=== PATIENT | male | born 1965 | race Caucasian/White ===

== ENCOUNTER 2018-09-24 17:49 | Inpatient (IN) ==
[2018-09-24 19:31] LABS: BASO# 0.02 X1000 (0.0-0.2); BASO% 0.1 % (0.0-0.8); EOS# 0.09 X1000 (0.0-0.7); EOS% 0.5 % (0.0-10.0); HEMATOCRIT 38.3 % (42.0-52.0); HEMOGLOBIN 12.8 g/dL (14.0-18.0); IMM GRAN# 0.04 X1000 (0.0-0.04); IMM GRAN% 0.2 % (0.0-0.5); LYMPH# 0.96 X1000 (1.2-3.4); LYMPH% 5.4 % (20.5-51.1); MCHC 33.4 g/dL (33-37); MCV 86.7 FL (81-99); MONO# 0.94 X1000 (0.11-0.59); MONO% 5.3 % (1.7-9.3); MPV 8.7 FL (7.4-10.4); NEUT# 15.63 X1000 (1.4-6.5); NEUT% 88.5 % (42.2-75.2); PLT 292 X1000 (130-400); RBC 4.42 XMIL (4.7-6.1); RDW 13.7 % (11.5-14.5); WBC 17.68 X1000 (4.8-10.8)
[2018-09-24 19:43] LABS: ALB/GLOB RATIO 1.1; ALBUMIN 3.9 g/dL (3.5-5.0); CALCIUM 9.8 mg/dL (8.8-10.2); POTASSIUM 3.7 mmol/L (3.5-5.1); TOTAL BILIRUBIN 0.35 mg/dL (0.20-1.00); TOTAL PROTEIN 7.3 g/dL (6.3-8.3)
[2018-09-24] MEDS ORDERED: NS 1,000 ML IV ONE (21:41)
[2018-09-24] MEDS ORDERED: ZOFRAN IV ONE (21:42)
[2018-09-24] MEDS ORDERED: MORPHINE IV ONE ×2 (21:42→23:40)
--- NOTE | 2018-09-24 23:22 | Diag Imaging Result Doc PS360 ---
EXAM: LUMBAR SPINE 2-VIEWS HISTORY: fall TECHNIQUE: AP and lateral, two views COMPARISON: None. FINDINGS: There is good alignment of the lumbar spine. No fracture. No subluxation. Prominent atherosclerosis. IMPRESSION: No acute bony injury. Electronically signed by Eh Motley 09/24/2018 11:20 PM
--- NOTE | 2018-09-24 23:25 | Diag Imaging Result Doc PS360 ---
EXAM: CERVICAL SPINE 2-VIEWS HISTORY: fall TECHNIQUE: AP and lateral, two views COMPARISON: None. FINDINGS: There is mild scoliosis and there are small degenerative bone spurs throughout the cervical spine. No subluxation. No precervical soft tissue swelling. IMPRESSION: Scoliosis with degenerative changes. Electronically signed by Eh Motley 09/24/2018 11:23 PM
[2018-09-24] MEDS ORDERED: NORVASC PO ONE (23:41)
[2018-09-25] MEDS ORDERED: G.I. COCKTAIL PO ONE (00:13)
[2018-09-25] MEDS ORDERED: STERILE WATER INJ. ONE (00:43)
[2018-09-25 01:23] LABS: URINE SOURCE CATH
[2018-09-25 01:54] LABS: BILIRUBIN URINE NEGATIVE (NEGATIVE); BLOOD URINE NEGATIVE (NEGATIVE); COLOR YELLOW; GLUCOSE URINE NEGATIVE (NEGATIVE); KETONE URINE NEGATIVE (NEGATIVE); LEUKOCYTES URINE NEGATIVE (NEGATIVE); NITRITE URINE NEGATIVE (NEGATIVE); PROTEIN URINE 30 mg/dL (NEGATIVE); SP GRAVITY URINE 1.007; TURBIDITY URINE CLEAR (CLEAR); UR EPITHELIAL CELLS <10 /HPF (<10); URINE BACTERIA NEGATIVE /HPF; URINE RBC <10 /HPF (<10); URINE WBC <10 /HPF (<10); UROBILINOGEN URINE NORMAL (NORMAL)
[2018-09-25] MEDS ORDERED: DILAUDID IV PRN (03:33)
--- NOTE | 2018-09-25 03:33 | PROVIDER DOCUMENTATION ---
This chart was entered by Cheyenne Booker Scribe, acting as scribe for Jesus Wild MD. HPI-General Adult - General Chief Complaint: Fall Stated Complaint: BACK PAIN/FALL Time Seen by Provider: 09/24/18 20:54 Source: patient Allergies/Adverse Reactions: Patient Allergies Allergy/AdvReac Type Severity Reaction Status Date / Time tizanidine HCl * Allergy Severe SYNCOPE Verified 09/24/18 21:28 [[facility] Home Medications: Home Medication List Medication Instructions Recorded Confirmed Last Taken Type Albuterol Sulfate [Proair Hfa] 2 puff INH PRN PRN 01/14/16 07/02/18 07/02/18 04: 00 History Promethazine [Phenergan] 25 mg PO Q6H PRN PRN 12/13/16 07/02/18 07/02/18 04:00 History Atorvastatin Calcium [Lipitor] 10 mg PO QHS 05/22/18 07/02/18 06/30/18 History Iron,Carbonyl/Ascorbic Acid [Iron 1 tab PO QAM 05/22/18 07/02/18 07/01/18 06:00 History 100-Vitamin C Tablet] Oxycodone/APAP 10 mg/325 mg 1 tab PO TID 05/22/18 07/02/18 07/01/18 12:30 History [Percocet-10] Sodium Bicarbonate 1 dose PO BID 05/22/18 07/02/18 07/01/18 16:00 History Trazodone [Desyrel] 100 mg PO PRN PRN 05/22/18 07/02/18 06/30/18 History Hydrocodone/Acetaminophen [[place] 1 each PO Q4H PRN PRN #30 tablet 07/02/18 Unknown Rx 10-325 Tablet] - History of Present Illness -Gen Adult Nature of Presenting Problems: pt is a 53 yr old male presenting with 2 day complaint of LLQ pain , hx of pancreatitis. pt reports pain as 9/10 "almost incapacitating" pt also reports nausea and vomiting. pt also reports low back and neck pain post fall 1 day ago. pt uses cane for ambulation Location of Pain/Injury: reports: neck, abdomen (LLQ), back Pain Radiation: reports: no radiation Quality of Pain: reports: aching (neck/back), sharp (LLQ) Timing: reports: constant Context/Activities at Onset: reports: recent trauma history (fall 1 day ago) Modifying Factors: improves with: nothing Associated Symptoms: reports: back/neck pain, nausea, vomiting, trouble walking . denies: fever/chills, genitourinary problems, shortness of breath, sensory/ motor loss Similar Symptoms Previously?: Yes (hx of pancreatitis) Recently seen or treated by another doctor?: No Review of Systems - Adult - REVIEW OF SYSTEMS - ADULT Constitutional: reports: fatique. denies: chills, fever Eyes: reports: no symptoms reported Ears, Nose, Mouth & Throat: reports: no symptoms reported Cardiovascular: denies: chest pain, palpitations, syncope Respiratory: denies: cough, shortness of breath Gastrointestinal: reports: abdominal pain, nausea, vomiting. denies: constipation, diarrhea Genitourinary: denies: dysuria, frequency, flank pain Musculoskeletal: reports: back pain, neck pain Integumentary: reports: no symptoms reported Neurological: denies: dizziness/vertigo, headache/migraines Psychiatric: reports: no symptoms reported Endocrine: reports: no symptoms reported Hematologic/Lymphatic: reports: no symptoms reported Allergic/Immunologic: reports: no symptoms reported All Other Systems: Reviewed and Negative Past History - Adult - PAST MEDICAL HISTORY-ADULT Review of Records: reports: Old Records Reviewed, Nursing Assessment Review, Medications Reviewed, Social history reviewed & non-contributory. Major Childhood Illnesses: reports: denies history Cardiovascular: reports: HTN Respiratory: reports: denies history Gastrointestinal: reports: GERD, pancreatitis Obstetrical/Gynecological: reports: denies history Genitourinary: reports: denies history Musculoskeletal: reports: chronic pain ( back ) Neurological: reports: denies history Psychiatric: reports: bipolar Endocrine/Immune: reports: other (pancreatitis) Other Conditions: reports: denies history - PRIOR SURGERIES/PROCEDURES Surgical/Procedure History: reports: appendectomy, other (partial right foot amputation) - IMMUNIZATION STATUS Childhood Immunizations: See Nurse Assessment Flu Vaccine: See Nurse Assessment - FAMILY HISTORY Family History: reviewed, not pertinent - SOCIAL HISTORY Smoking: denies Substance Use: none presently/history of abuse, alcohol Living Situation: family Physical Exam-General - PHYSICAL EXAM-ADULT Initial Vital Signs Reviewed: Yes - CONSTITUTIONAL General Appearance: appears well, alert, no apparent distress - EYES Eyes: PERRL/EOMI - HEAD, EARS, NOSE, MOUTH & THROAT HENMT: normocephalic/atraumatic, moist mucous membranes, normal ENT inspection Progress - PLAN OF CARE/RESULTS Progress/Plan/Lab Results: Vital Signs - 8 hr 09/24/18 18:13 Temperature 97.9 F Pulse Rate 100 H Respiratory Rate 18 Blood Pressure 150/94 O2 Sat by Pulse Oximetry 100 Laboratory Results - last 24 hr 09/24/18 09/24/18 19:00 19:00 WBC 17.68 H RBC 4.42 L Hgb 12.8 L Hct 38.3 L MCV 86.7 MCH 29.0 MCHC 33.4 RDW Std Deviation 13.7 Plt Count 292 MPV 8.7 Immature Gran % (Auto) 0.2 Neut % (Auto) 88.5 H Lymph % (Auto) 5.4 L [place] % (Auto) 5.3 Eos % (Auto) 0.5 Baso % (Auto) 0.1 Immature Gran # (Auto) 0.04 Neut # (Auto) 15.63 H Lymph # (Auto) 0.96 L [place] # (Auto) 0.94 H Eos # (Auto) 0.09 Baso # (Auto) 0.02 Sodium 140 Potassium 3.7 Chloride 101 Carbon Dioxide 24 L Anion Gap 15 BUN 17 Creatinine 2.0 H Estimated GFR/1.73 m2 35 BUN/Creatinine Ratio 9 Glucose 169 H Calculated Osmolality 285 Calcium 9.8 Total Bilirubin 0.35 AST 10 ALT 7 L Alkaline Phosphatase 160 H Total Protein 7.3 Albumin 3.9 Globulin 3.4 Albumin/Globulin Ratio 1.1 Amylase 89 Lipase 231 H Orders Category Date Time Status Saline Loc DIRECTED Care 09/24/18 19:06 Active NPO Diet 09/24/18 19:06 Active CERVICAL SPINE 2-VIEWS [RAD] Stat Exams 09/24/18 22:01 Taken LUMBAR SPINE 2-VIEWS [RAD] Stat Exams 09/24/18 22:01 Taken AMYLASE [CHEM] Stat Lab 09/24/18 19:00 Completed CBC WITH ELECTRONIC DIFF [HEME] Stat Lab 09/24/18 19:00 Completed COMPREHENSIVE METABOLIC PANEL [CHEM] Stat Lab 09/24/18 19:00 Completed LIPASE [CHEM] Stat Lab 09/24/18 19:00 Completed URINALYSIS W/POSS RFLX CULT [URINALYSIS] Stat Lab 09/24/18 19:06 Uncollected 0.9% Sodium Chloride Inj [Ns] 1,000 ml Med 09/24/18 21:41 Active IV 999 mls/hr Morphine Med 09/24/18 21:42 Discontinued 4 mg IV NOW ONE Ondansetron [Zofran] Med 09/24/18 21:42 Discontinued 4 mg IV NOW ONE Result Diagrams: 09/24/18 19:00 09/24/18 19:00 - CONSULTS/PCP/HOSPITALIST Notification #1 *Consult/PCP/Hospitalist*: akinsoto Time Discussed: 23:13 (acute pancreatitis) Consult Disposition: Admit Departure - Departure Date of Disposition Decision: 09/24/18 Time of Disposition Decision: 23:13 DIAGNOSIS: Acute pancreatitis Disposition: ADMITTED INPATIENT 09 Certified Medical Emergency: Emergent Condition: Fair - Critical Care Note This patient required my direct & personal management of CC.: No Attestation - Physician/ DESTINY Attestation Patient care was provided by Advanced Practice Provider:: No The physician spent face to face time with patient:: Yes Advanced Practice Provider documentation review:: Supervising physician onsite and consulted in the evaluation and care of this patient. The physician did have a face to face encounter with the patient. This chart was documented by the indicated scribe, (Cheyenne Booker, [place]) and accurately reflects the services I performed and decisions made by me, Jesus Wild MD, as attested by the provider's signature.
[2018-09-25] MEDS ORDERED: DILAUDID ONE ×2 (03:55→09:59)
[2018-09-25] MEDS: HEPARIN SUBQ SCH ×2 (04:03→14:39)
[2018-09-25] MEDS: NS 1,000 ML IV SCH ×2 (04:16→13:33)
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
[2018-09-25 07:02] LABS: BASO# 0.01 X1000 (0.0-0.2); BASO% 0.1 % (0.0-0.8); EOS# 0.16 X1000 (0.0-0.7); EOS% 1.8 % (0.0-10.0); HEMATOCRIT 34.6 % (42.0-52.0); HEMOGLOBIN 11.4 g/dL (14.0-18.0); IMM GRAN# 0.02 X1000 (0.0-0.04); IMM GRAN% 0.2 % (0.0-0.5); LYMPH# 1.06 X1000 (1.2-3.4); LYMPH% 11.9 % (20.5-51.1); MCH 28.8 PG (27-31); MCHC 32.9 g/dL (33-37); MCV 87.4 FL (81-99); MONO# 0.67 X1000 (0.11-0.59); MONO% 7.5 % (1.7-9.3); MPV 8.8 FL (7.4-10.4); NEUT% 78.5 % (42.2-75.2); PLT 216 X1000 (130-400); RBC 3.96 XMIL (4.7-6.1); RDW 13.6 % (11.5-14.5); WBC 8.92 X1000 (4.8-10.8)
[2018-09-25 07:08] LABS: INR 0.91
[2018-09-25 07:13] LABS: CHOLESTEROL 131 mg/dL (0-200); HDL 43 mg/dL (35-55); LDL 70 mg/dL; TRIGLYCERIDES 90 mg/dL (39-160); VLDL 18 mg/dL
[2018-09-25 07:24] LABS: CALCIUM 9.4 mg/dL (8.8-10.2); CREATININE 1.9 mg/dL (0.7-1.2); MAGNESIUM 1.9 mg/dL (1.5-2.7); POTASSIUM 3.2 mmol/L (3.5-5.1)
[2018-09-25] MEDS: DILAUDID IV PRN ×4 (10:42→22:49)
[2018-09-25] MEDS: NORVASC PO SCH ×2 (10:42→22:50)
[2018-09-25] MEDS: ZOFRAN IV PRN ×3 (10:44→18:21)
--- NOTE | 2018-09-25 11:09 | PROGRESS NOTE ---
DATE: 09/25/2018 SUBJECTIVE: This morning, Mr. Murphy refers to be doing a little better. Still has some abdominal discomfort and generalized pains from his fall. Mr. Murphy got admitted yesterday. He said he fell from a truck and sustained some injury to his neck and back. Upon presentation, imaging studies, including x-rays were unremarkable. He said subsequently after the fall, he took Percocet and morphine and then by the following day he started having abdominal pain, came to the emergency department where he was evaluated and was found to have lipase level high. He was subsequently admitted for acute pancreatitis. This morning, he said he is feeling a whole lot better. OBJECTIVE: Vital signs: Blood pressure is 171/84, pulse is 68, respiration is 15, temperature is 97.6 degrees. General: Mr. Murphy is a 53-year-old gentleman. He is in bed. No distress. Mucosa is pink and moist. Anicteric and acyanotic. Neck: Supple. Chest: Good air entry bilaterally. There were no crepitations. No rhonchi. No accessory muscle use. Cardiovascular: Regular rate and rhythm. No murmurs, no rubs, no gallops. GI: Abdomen is soft, minimally tender in the periumbilical region. There is a scar on the left upper quadrant. Bowel sounds present. Extremities: No pedal edema. Patient has a right transmetatarsal amputation with a clean stump. Distal pulses are present. COTTON FARMER: Patient is awake, alert, and oriented. No focal neurological deficit. Musculoskeletal: Minimal tenderness over the paracervical spine. Neurological: No neurological deficits. LABORATORY DATA: Has been reviewed. WBC is 8.92, hemoglobin is 11.4, platelet count 216,000. Chemistry is also reviewed. Chemistry is down to 1.9, creatinine is 2.3. The lipase was 231 on admission. IMAGING STUDIES: Cervical x-ray did show scoliosis with degenerative changes. Lumbar spine showed no acute bony abnormalities. ASSESSMENT: 1. Acute on chronic pancreatitis. The patient is currently minimally symptomatic in terms of the abdominal pain. We are going to start him on meals and see if he is able to tolerate. 2. Status post mechanical fall. 3. Noted, patient has generalized pains. X-rays have been unremarkable. We will continue with physical therapy and pain management. 4. Hypertension, controlled. The patient is currently on Norvasc. 5. Dyslipidemia. We will continue with the atorvastatin. 6. Acute on chronic kidney failure. Creatinine is on downward trend. Patient did have a renal biopsy done in 2016, which revealed acute interstitial nephritis and does have also arteriosclerosis moderate with moderate tubular atrophy and interstitial fibrosis. As I said, this was in 2016. This time around, the patient got admitted with creatinine level of 2, and is down to 1.9. We will continue with the gentle hydration and go from there. 7. Ongoing tobacco use. According to him, he is only using vape. cc: Ritesh Motley MD
[2018-09-25] MEDS ORDERED: ATIVAN IV ONE (20:35)
[2018-09-25] MEDS ORDERED: DILAUDID IV ONE (20:35)
[2018-09-25] MEDS: LIPITOR PO SCH (22:50)
[2018-09-26] MEDS: NS 1,000 ML IV SCH (03:29)
[2018-09-26] MEDS: DILAUDID IV PRN ×8 (04:24→23:53)
[2018-09-26] MEDS: ZOFRAN IV PRN (06:11)
[2018-09-26 08:04] LABS: BASO# 0.01 X1000 (0.0-0.2); BASO% 0.1 % (0.0-0.8); EOS# 0.08 X1000 (0.0-0.7); EOS% 1.1 % (0.0-10.0); HEMATOCRIT 33.7 % (42.0-52.0); HEMOGLOBIN 11.2 g/dL (14.0-18.0); IMM GRAN# 0.02 X1000 (0.0-0.04); IMM GRAN% 0.3 % (0.0-0.5); LYMPH# 0.44 X1000 (1.2-3.4); MCHC 33.2 g/dL (33-37); MCV 90.3 FL (81-99); MONO# 0.43 X1000 (0.11-0.59); MONO% 5.8 % (1.7-9.3); NEUT# 6.38 X1000 (1.4-6.5); NEUT% 86.7 % (42.2-75.2); PLT 160 X1000 (130-400); RBC 3.73 XMIL (4.7-6.1); RDW 13.9 % (11.5-14.5); WBC 7.36 X1000 (4.8-10.8)
[2018-09-26 08:17] LABS: LYMPHS 10 % (21-51); MONO 4 % (1-9); SEGS 86 % (42-75)
[2018-09-26 08:42] LABS: ALB/GLOB RATIO 1.5; ALBUMIN 3.8 g/dL (3.5-5.0); C REACTIVE PROT QUANT 44.77 mg/L (0.00-5.00); CALCIUM 9.2 mg/dL (8.8-10.2); CREATININE 1.7 mg/dL (0.7-1.2); POTASSIUM 3.6 mmol/L (3.5-5.1); TOTAL BILIRUBIN 0.38 mg/dL (0.20-1.00); TOTAL PROTEIN 6.4 g/dL (6.3-8.3)
[2018-09-26] MEDS: NORVASC PO SCH ×2 (09:13→20:06)
[2018-09-26] MEDS: HEPARIN SUBQ SCH ×2 (09:16→20:03)
[2018-09-26] MEDS: LR 1,000 ML IV SCH ×3 (09:16→19:21)
[2018-09-26] MEDS ORDERED: DESYREL PO PRN (17:33)
[2018-09-26] MEDS: PERCOCET-10 PO SCH (18:03)
--- NOTE | 2018-09-26 18:14 | PROGRESS NOTE ---
DATE: 09/26/2018 SUBJECTIVE: This morning, Mr. Murphy refers to be doing fairly okay. Still has some residual abdominal discomfort, but he has been tolerating his clear liquid diet. OBJECTIVE: Vital signs: Blood pressure is 183/86, pulse is 79, respirations 20, temperature 97.7 degrees. General: Mr. Murphy is a 53-year-old gentleman. He was in bed in no distress. HEENT: Mucosa is pink and moist. Anicteric. Acyanotic. Neck: Supple. Chest: Good air entry bilateral. There were no crepitations. No rhonchi. Cardiovascular: Regular rate and rhythm. No murmurs, no rubs, no gallops. Gastrointestinal: Abdomen is soft, minimally tender in the periumbilical area. There is a scar on the left upper quadrant. Extremities: No pedal edema. Distal pulses are present. There is a right transmetatarsal amputation with clean stump. TOBY MAKER: Patient is awake, alert, and oriented. LABORATORY DATA: WBC is 7.36, hemoglobin 11.2, platelet count 160,000. Chemistry is also reviewed. Bicarb is 15. Creatinine is down to 1.7. C-reactive protein is elevated at 44.7. Patient's lipase is down to 75. ASSESSMENT AND PLAN: 1. Qvbov-ys-lyumbyz pancreatitis. Lipase is on downward trend. Patient's C-reactive protein is still elevated. He is currently on clear liquids. We will continue with IV hydration, pain management, and see if he be able to tolerate a clear full liquid diet. 2. Status post status post mechanical fall at home. 3. [id number] kidney failure. Creatinine continues to be on downward trend. 4. Ongoing tobacco abuse. Patient has been counseled. 5. Dyslipidemia/hypertension. We will continue to manage these comorbidities. In general, Mr. Murphy seems to be getting a little better. C-reactive protein is still elevated. However, lipase is almost normalized. Patient's creatinine is also on downward trend. We will continue with the IV fluids. I have changed the fluid to lactate because of hyperchloremic acidemia. We will recheck on his labs in the morning. Please refer to the other details of the progress note in the medical student's notes. cc: Ritesh Motley MD
[2018-09-26] MEDS: SODIUM BICARBONATE PO SCH (20:03)
[2018-09-26] MEDS: VALIUM PO SCH (20:07)
[2018-09-26] MEDS: LIPITOR PO SCH (20:07)
[2018-09-27] MEDS: DILAUDID IV PRN ×3 (03:01→13:00)
[2018-09-27 05:14] VITALS: BP 190/80
[2018-09-27 08:00] LABS: AGAP 15; ALB/GLOB RATIO 1.1; ALBUMIN 3.5 g/dL (3.5-5.0); ALKALINE PHOSPHATASE 127 U/L (32-122); BUN 10 mg/dL (8-22); CALCIUM 9.5 mg/dL (8.8-10.2); CHLORIDE 105 mmol/L (98-107); COSMO 281; CREATININE 1.5 mg/dL (0.7-1.2); ESTIMATED GFR 49; GLUCOSE 112 mg/dL (70-104); GOT 9 U/L (10-34); GPT < 5 U/L (10-44); POTASSIUM 3.3 mmol/L (3.5-5.1); SODIUM 141 mmol/L (136-145); TCO2 21 mmol/L (25-35); TOTAL BILIRUBIN 0.49 mg/dL (0.20-1.00); TOTAL PROTEIN 6.7 g/dL (6.3-8.3)
[2018-09-27] MEDS: SODIUM BICARBONATE PO SCH (10:02)
[2018-09-27] MEDS: HEPARIN SUBQ SCH (10:02)
[2018-09-27] MEDS: NORVASC PO SCH (10:03)
[2018-09-27] MEDS: VALIUM PO SCH (10:03)
[2018-09-27] MEDS: PERCOCET-10 PO SCH ×2 (10:03→13:00)
[2018-09-27] MEDS: LR 1,000 ML IV SCH (10:04)
[2018-09-27] MEDS ORDERED: FLU VACCINE IM ONE (15:38)
--- NOTE | 2018-09-28 08:04 | DISCHARGE SUMMARY ---
ADMISSION DATE: 09/24/2018 DISCHARGE DATE: 09/27/2018 FOLLOWUP: 1. Ms. Namita Hopkins. 2. Dr. Amanda. CONSULTATION DURING THIS ADMISSION: None. IMAGING STUDIES OF SIGNIFICANCE: Cervical spine and lumbar spine were done. No acute fractures. ADMISSION DIAGNOSES: 1. Acute on chronic pancreatitis. 2. Chronic neck and back pain. 3. Hypertension. 4. Hyperglycemic. DIAGNOSES AT THE TIME OF DISCHARGE: 1. Acute on chronic pancreatitis. 2. Status post mechanical fall at home. 3. Acute on chronic kidney failure. Creatinine is on downward trend. 4. Ongoing tobacco abuse. Patient has been counseled. 5. Dyslipidemia, stable. 6. Hypertension, controlled. 7. Chronic pain syndrome. DISCHARGE MEDICATIONS: 1. Promethazine 25 mg p.o. q. 6 p.r.n. 2. Trazodone 100 mg p.o. p.r.n. 3. Percocet 10 mg 2 times per day. 4. Sodium bicarbonate 325 b.i.d. 5. Valium 10 mg b.i.d. PRESENTING COMPLAINT: Fall with neck, back, abdominal pain. HISTORY OF PRESENTING COMPLAINT: Mr. Murphy is a 53-year-old male with a history of stage III-IV renal disease, who presented to the emergency department because of abdominal pain. Patient is on chronic Percocet for pain management. He used to be binging a long time ago on alcohol, but according to him he stopped this about a few years ago on his first diagnosis of pancreatitis. In any case, he came in after a mechanical fall at home and he was evaluated in the emergency department. X-rays were negative for any acute fracture. His lipase, however, was elevated. He was subsequently admitted for acute on chronic pancreatitis. HOSPITAL COURSE: Mr. Murphy was initially kept n.p.o. Pain was adequately managed with IV narcotics, and he was started progressively on clears and advanced. His pain got better controlled. His lipase improved and his C-reactive protein also did show some trending down. Mr. Murphy is however advised to follow up with Dr. Amanda for outpatient workup on his pancreatitis and outpatient management of his pancreatitis. His creatinine, which was 2.0 on admission, has gone down to 1.5 with adequate hydration. This morning Mr. Murphy refers to be doing a whole lot better. His pain is about 2/10. He has been started on his oral Percocet, and he is tolerating that. No more vomiting. He is stable for discharge. He will follow up with Dr. Amanda. All the discharge instructions have been discussed with him, and he voiced understanding. TIME SPENT FOR DISCHARGE: 35 minutes. cc: MD Namita Henao CRNP Khurshid Yousuf, MD
== END 2018-09-27 15:54 | disposition home or self-care (01) | DRG 439 ==
LOC: SUPCPDRO → ED 17:49 → EDIPHOLD 23:41 → SUATTDRO 23:41 → 3N 09-25 21:23
PROVIDERS: ATTEND Internal Medicine
CPT/HCPCS: 36415; 72040; 72100; 80048; 80053; 80061; 81001; 82150; 83036; 83690; 83735; 84443; 85025; 85610; 86140; 96361; 96372; 96374; 96375; 96376; 99285; A9270; J1170; J1644; J2060; J2270; J2405; J7030; J7120